=== PATIENT | female | born 1975 | race Caucasian/White ===

== ENCOUNTER 2017-10-03 12:01 | Emergency (ER) | payer OTHER | END 2017-10-03 12:59 | disposition left against medical advice (07) | LOC: ED 12:01 | DX: K08.89 Other specified disorders of teeth and supporting structures (principal) ==

== ENCOUNTER 2018-01-24 17:23 | Emergency (ER) | payer OTHER ==
[2018-01-24 17:35] VITALS: BP 122/86; O2SAT 97
--- NOTE | 2018-01-24 17:47 | ERPHSYRPT ---
- History of Present Illness Time Seen by Provider: 01/24/18 17:40 Source: patient Exam Limitations: clinical condition Patient Subjective Stated Complaint: pt reports she broke a tooth off on right side of mouth this am-reports severe throbbing pain since then Triage Nursing Assessment: pt pink warm and [id number] easy and nonlabored- dental carries noted Physician History: PATIENT SHE A CHIPPED LOWER TOOTH TODAY ASSOCIATED WITH SEVERE PAIN DISCOMFORT. DENIES FACIAL SWELLING, FEVER, DIFFICULTY SWALLOWING OR BREATHING. Timing/Duration: abrupt onset Severity: moderate ENT Location: dental Prearrival Treatment: no prearrival treatment Modifying Factors: Improves With: nothing Associated Symptoms: denies symptoms Allergies/Adverse Reactions: No Known Drug Allergies Allergy (Unverified 01/24/18 17:34) Home Medications: Alprazolam 0.5 mg [xanAX 0.5 MG] 0.5 mg PO UD 01/24/18 [History] Paroxetine HCl 30 mg PO DAILY 01/24/18 [History] Hx Tetanus, Diphtheria Vaccination/Date Given: Yes Hx Influenza Vaccination/Date Given: No Hx Pneumococcal Vaccination/Date Given: No Immunizations Up to Date: Yes - Review of Systems Constitutional: No Symptoms Eyes: No Symptoms Ears, Nose, & Throat: Other (DENTAL PAIN) Respiratory: No Symptoms Cardiac: No Symptoms Neurological: No Symptoms - Past Medical History Pertinent Past Medical History: Yes Psycho-Social History: Anxiety, Depression - Past Surgical History Past Surgical History: No - Social History Smoking Status: Current every day smoker How long have you smoked: yrs Exposure to second hand smoke: Yes Drug Use: none Patient Lives Alone: No - Female History Hx Now: No - Nursing Vital Signs Nursing Vital Signs: Initial Vital Signs Temperature 97.9 F 01/24/18 17:31 Pulse Rate 100 H 01/24/18 17:31 Respiratory Rate 18 01/24/18 17:31 Blood Pressure 122/86 01/24/18 17:31 O2 Sat by Pulse Oximetry 97 01/24/18 17:31 Pain Scale Pain Intensity 8 - Physical Exam General Appearance: no apparent distress Eye Exam: bilateral eye: normal inspection, PERRL Ear Exam: bilateral ear: auricle normal, canal normal Nasal Exam: normal inspection Throat Exam: dental tenderness (WIDESPREAD DENTAL CARIES ERODED INTO [place]) SpO2: 97 Oxygen Delivery: Room Air Ordered Tests: Medication Summary Discontinued Medications Generic Name Dose Route Start Last Admin Trade Name Haoq PRN Reason Stop Dose Admin Ketorolac Tromethamine 60 mg 01/24/18 17:50 01/24/18 18:07 Toradol 30 Mg Injection IM 01/24/18 17:51 60 mg STAT ONE Administration Ketorolac Tromethamine Confirm 01/24/18 18:04 Toradol 30 Mg Injection Administered 01/24/18 18:05 Dose 60 mg .ROUTE .ST-MED ONE - Progress Progress Note: 01/24/18 17:49 ADMINISTERED TORADOL 60MG IM Counseled pt/family regarding: diagnosis, need for follow-up - Departure Time of Disposition: 16:21 Departure Disposition: Home Clinical Impression: [facility]IDESPREAD DENTAL CARIES Condition: Stable Critical Care Time: No Referrals: REKHA BARBA MD [Primary Care Provider] - Additional Instructions: FOLLOWUP WITH YOUR DENTIST AND PRIMARY CARE PROVIDER TOMORROW. ANTIBIOTIC AUGMENTIN 875MG TWICE DAILY FOR 10 DAYS. PERCOGESIC 1-2 TABLETS EVERY 4 HOURS FOR PAIN NEEDED. Prescriptions: Acetaminophen/Diphenhydramine [Percogesic 325-12.5 mg Tablet] 2 tablet PO Q4- 6HPRN PRN #20 tablet PRN Reason: Pain Amox Tr/Potass Clav. 875 mg [Augmentin 875-125 Tablet] 875 mg PO BID #20 tablet
[2018-01-24] MEDS ORDERED: TORAdol 30 mg Injection IM ONE (17:50)
[2018-01-24] MEDS ORDERED: TORAdol 30 mg Injection ONE (18:04)
[2018-01-24 18:29] VITALS: PULSE 98
== END 2018-01-24 18:36 | disposition home or self-care (01) ==
LOC: ED 17:23
DX: K02.9 Dental caries, unspecified (principal)
CPT/HCPCS: 96372; 99283; J1885